=== PATIENT | male | born 1940 | race Caucasian/White ===

== ENCOUNTER 2019-11-05 20:37 | Emergency (ER) | payer SELFPAY ==
[2019-11-05] MEDS ORDERED: ACETAMINOPHEN 500 MG TAB ONE (21:15)
[2019-11-05] MEDS ORDERED: NA CHLORIDE 0.9% 0 ML ONE (21:16)
[2019-11-05 21:26] LABS: Absolute Lymphocytes (CBC) 7.3 K/uL (0.7-4.9); Basophils % 0.1 % (0-1.3); Hematocrit 13.2 % (39.6-49.0); Lymphocytes % 3.6 % (15.3-44.8); MPV 7.5 fL (7.6-11.3); RBC Red Blood Cell Count 1.18 M/uL (4.33-5.43)
[2019-11-05 21:37] LABS: ALT/SGPT 17 U/L (12-78); AST/SGOT 23 U/L (15-37); Albumin 2.6 g/dL (3.4-5.0); Alkaline Phosphatase 88 U/L (45-117); Amylase 24 U/L (25-115); BUN Blood Urea Nitrogen 18 mg/dL (7-18); Bicarbonate 24 mmol/L (21-32); Bilirubin Direct 0.3 mg/dL (0-0.2); Bilirubin Total 0.6 mg/dL (0.2-1.0); CKMB Creatine Kinase MB < 1.0 ng/mL (0.3-3.6); Creatine Phosphokinase 118 U/L (39-308); Glucose Level 144 mg/dL (74-106); Lipase 29 U/L (73-393); Protein, Total 6.8 g/dL (6.4-8.2); Sodium Level 136 mmol/L (136-145); Troponin (Emerg Dept Use Only) 0.08 ng/mL (0.0-0.045)
[2019-11-05 21:38] LABS: Protime INR 1.76
[2019-11-05] MEDS ORDERED: CEFTRIAXONE/SWI 1gm 1 GM/10 ML SYR ONE ×2 (21:50→21:54)
[2019-11-05 23:26] LABS: Anisocytosis 1+; Blood Morphology Comment NOTED (NOT SEEN); Macrocytosis 2+; Platelet Estimate DECR
--- NOTE | 2019-11-05 23:26 | EDPHYS ---
Physician Documentation [facility] Name: Cody Womack Age: 79 yrs Sex: Male : 1940 Arrival Date: 11/05/2019 Time: 20:[address] Private MD: ED Physician Wali Gordon HPI: 11/04 21:06 This 79 yrs old Male presents to ER via EMS with complaints of Chest Pain. [facility] 21:06 The patient or guardian reports cough, difficulty breathing. Onset: The [facility] symptoms/episode began/occurred gradually, 3 week(s) ago. Modifying factors: The symptoms are alleviated by nothing. the symptoms are aggravated by nothing. Associated signs and symptoms: Pertinent positives: fever. This is a 79 year old male with no known chronic medical conditions that presents to the ED with complaints of cough, congestion which has progressively worsened over the past 3 weeks. Patient states now having chest pain as well. . Historical: - Allergies: 21:07 No Known Allergies; - Home Meds: 21:07 Unable to obtain [Active]; - PMHx: 21:07 None; - PSHx: 21:07 None; - Immunization history:: Adult Immunizations not up to date. - Social history:: Smoking status: Patient/guardian denies using. ROS: 21:06 Abdomen/GI: Negative for abdominal pain, nausea, vomiting, diarrhea, and constipation, jmm Back: Negative for injury and pain, Neuro: Negative for headache, weakness, numbness, tingling, and seizure. 21:06 Constitutional: Positive for body aches, chills. 21:06 Cardiovascular: Positive for chest pain. 21:06 Respiratory: Positive for cough, shortness of breath. 21:06 All other systems are negative. Exam: 21:06 Head/Face: atraumatic. Eyes: EOMI, no conjunctival erythema appreciated ENT: Moist [facility] Mucus Membranes Neck: Trachea midline, Supple 21:06 Chest/axilla: Normal chest wall appearance and motion. Cardiovascular: Regular rate and rhythm. No edema appreciated 21:06 Abdomen/GI: Non distended, soft Back: Normal ROM Skin: General appearance color normal MS/ Extremity: Moves all extremities, no obvious deformities appreciated, no edema noted to the lower extremities Neuro: Awake and alert, normal gait Psych: Behavior is normal, Mood is normal, Patient is cooperative and pleasant 21:06 Constitutional: The patient appears alert, awake, uncomfortable. 21:06 Respiratory: mild respiratory distress is noted, Respirations: normal, Breath sounds: wheezing: that is mild, is scattered. Vital Signs: 20:53 BP 134 / 71; Pulse 112; Resp 24; Temp 101.7; Pulse Ox 98% 3 lpm ; Weight 103.42 kg; Height 5 ft. 4 in. (162.56 cm); 20:53 BP 134 / 71; Pulse 111; Resp 24; Pulse Ox 98% on 3 lpm NC; wh 22:00 BP 135 / 65; Pulse 101; Resp 24; Pulse Ox 98% on 3 lpm NC; 23:00 BP 127 / 59; Pulse 103; Resp 22; Temp 98.4; Pulse Ox 97% on 3 lpm NC; 11/05 00:30 BP 121 / 55; Pulse 102; Resp 22; Pulse Ox 97% on 3 lpm NC; 01:30 BP 127 / 54; Pulse 101; Resp 22; Pulse Ox 98% on 3 lpm NC; 02:45 BP 138 / 66; Pulse 107; Resp 24; Pulse Ox 99% on 15% Non-rebreather mask; 03:14 BP 145 / 60; Pulse 107; Resp 26; Pulse Ox 96% on 5 lpm NC; 04:00 BP 106 / 42; Pulse 104; Resp 22; Pulse Ox 99% on 20 lpm NC; 11/04 20:53 Body Mass Index 39.14 (103.42 kg, 162.56 cm) wh MDM: 11/04 21:22 Patient medically screened. [facility] 23:22 Data reviewed: vital signs, nurses notes. Counseling: I had a detailed discussion with anushka the patient and/or guardian regarding: the historical points, exam findings, and any diagnostic results supporting the discharge/admit diagnosis, lab results, radiology results, the need to transfer to another facility. ED course: I discussed the patient with Dr. Aragon whom recommended transfer due to acute leukemia. I discussed the patient with Dr. Myles whom accepted will consult on transfer and I discussed the patient with Dr. Garcia whom accepted transfer. . 11/05 02:55 ED course: Dr. Garcia requested to keep the patient here until he received blood. I anushka then discussed the patient with Dr. Whiting at [facility] that accepted transfer. . 11/04 20:53 Order name: Amylase, Serum; Complete Time: 21:38 11/04 20:53 Order name: Basic Metabolic Panel; Complete Time: 21:38 11/04 20:53 Order name: Blood Culture Adult (2) 11/04 20:53 Order name: CBC with Diff; Complete Time: 23:34 11/04 21:50 Interpretation: Abnormal. [facility] 11/04 20:53 Order name: Ckmb; Complete Time: 21:38 11/04 20:53 Order name: CPK; Complete Time: :38 11/04 20:53 Order name: Lactate; Complete Time: : 11/04 20:53 Order name: LFT's; Complete Time: : 11/04 20:53 Order name: Lipase; Complete Time: 21:38 11/04 20:53 Order name: Procalcitonin; Complete Time: 22:01 11/04 20:53 Order name: Protime (+inr); Complete Time: 21:48 11/04 20:53 Order name: Ptt, Activated; Complete Time: 21:48 11/04 20:53 Order name: Troponin (emerg Dept Use Only); Complete Time: 21:38 11/04 20:53 Order name: Urine Microscopic Only; Complete Time: 02:51 11/04 20:53 Order name: Chest Single View XRAY 11/04 20:53 Order name: Flu; Complete Time: 22:45 11/04 22:00 Order name: Glucose, Ancillary Testing; Complete Time: 22:06 [facility] 11/04 22:05 Order name: Manual Differential; Complete Time: 23:34 [facility] 11/04 22:17 Order name: SARS-COV-2 RT PCR; Complete Time: 23:18 [facility] 11/04 22:46 Order name: Type And Screen [facility] 11/05 00:27 Order name: Antibody Identification [facility] 11/05 02:26 Order name: Urine Dipstick--Ancillary (enter results); Complete Time: 02:40 ds4 11/05 02:45 Order name: Urine Culture [facility] 11/05 04:04 Order name: ABG Arterial Blood Gas [facility] 11/04 20:53 Order name: Accucheck; Complete Time: 21:51 11/04 20:53 Order name: Cardiac monitoring; Complete Time: : 11/04 20:53 Order name: EKG - Nurse/Tech; Complete Time: : 11/04 20:53 Order name: IV Saline Lock - Large Bore; Complete Time: 21:51 11/04 20:53 Order name: Labs collected and sent; Complete Time: 21: 11/04 20:53 Order name: O2 Per Protocol; Complete Time: : 11/04 20:53 Order name: O2 Sat Monitoring; Complete Time: : 11/04 20:53 Order name: Urine Dipstick-Ancillary (obtain specimen); Complete Time: : 11/04 21:41 Order name: Chest Wo Con CT jm Administered Medications: 11/04 21:51 Drug: Tylenol 1000 mg Route: PO; 23:42 Follow up: Response: No adverse reaction; Temperature is decreased :51 Drug: Rocephin 2 grams Route: IV; Rate: calculated rate; Site: right forearm; 23:42 Follow up: Response: No adverse reaction; IV Status: Completed infusion 23:42 Drug: vancoMYCIN 1 grams Route: IVPB; Infused Over: 2 hrs; Site: right forearm; 11/05 01:08 Follow up: Response: No adverse reaction; IV Status: Completed infusion 01:08 Not Given (Physician Discretion): NS 0.9% (30 ml/kg) 30 ml/kg IV at bolus once; Sepsis Protocol 02:30 Drug: Xopenex (3) 1.25 mg Route: Inhalation; 03:01 Drug: Herreid 5 mg-325 mg 1 tabs Route: PO; 04:07 Follow up: Response: No adverse reaction; Pain is decreased; RASS: Alert and Calm (0) Disposition: 06:51 Co-signature as Attending Physician, Wali Gordon MD. [email or web address] Disposition: 11/05/19 23:25 Transfer ordered to [facility]. Diagnosis are Acute monoblastic/monocytic leukemia, Multifocal Pneumonia. - Reason for transfer: Higher level of care. - Accepting physician is Dr. Whiting. - Condition is Stable. - Problem is new. - Symptoms are unchanged. Signatures: Dispatcher [employer] EDMS Mickail, Chauncey, PA PA [facility] Hoa, Mamadou Wali Gordon MD MD [email or web address] Corrections: (The following items were deleted from the chart) 11/04 21:33 20:53 D-DIMER+COAG.LAB.BRZ ordered. EDMS EDMS 22:17 20:54 CORONAVIRUS+MR.LAB.BRZ ordered. EDMS EDMS 23:36 23:17 PACKED RBC LEUKORED -1+BB.LAB.BRZ ordered. EDMS EDMS 23:36 23:17 ABO/RH typing ordered. EDMS EDMS 23:36 23:17 Antibody Screen ordered. EDWV EDMS 11/05 02:55 11/04 23:25 11/05/2019 23:25 Transfer ordered to [facility]. [facility] Diagnosis is Acute monoblastic/monocytic leukemia; Multifocal Pneumonia. Reason for transfer: Higher level of care. Accepting physician is Dr. Garcia. Condition is Stable. Problem is new. Symptoms are unchanged. [facility] 11/05 04:18 02:55 11/05/2019 23:25 Transfer ordered to [facility]. Diagnosis is Acute wh monoblastic/monocytic leukemia; Multifocal Pneumonia. Reason for transfer: Higher level of care. Accepting physician is Dr. Whiting. Condition is Stable. Problem is new. Symptoms are unchanged. [facility]
--- NOTE | 2019-11-05 23:26 | ER ---
Nurse's Notes [facility] Name: Cody Womack Age: 79 yrs Sex: Male : 1940 Arrival Date: 11/05/2019 Time: 20:[address] Private MD: Diagnosis: Acute monoblastic/monocytic leukemia;Multifocal Pneumonia Presentation: 11/04 20:50 Chief complaint: Patient states: chest pain that started for a week. Pt states Hx of on wh and off colds for months now. Pt thinks that's what causing the chest pain. Pt C/O chest pin radiating to both arms. Coronavirus screen: Client denies travel out of the [place] in the last 14 days. cough unrelated to allergies, fever, Client presents with at least one sign or symptom that may indicate coronavirus-19. Standard/surgical mask placed on the client. Ebola Screen: Patient negative for fever greater than or equal to 101.5 degrees Fahrenheit, and additional compatible Ebola Virus Disease symptoms Patient denies exposure to infectious person. Initial Sepsis Screen: Does the patient meet any 2 criteria? RR > 20 per min. Temp <36.0*C (96.8*F)) or > 38.3*C (100.9*F). HR > 90 bpm. Yes Does the patient have a suspected source of infection? Yes: Productive cough/pneumonia. Risk Assessment: Do you want to hurt yourself or someone else? Patient reports no desire to harm self or others. Onset of symptoms was November 05, 2019. 20:50 Method Of Arrival: EMS: [facility] 20:50 Acuity: BAO 3 Historical: - Allergies: 21:07 No Known Allergies; - Home Meds: 21:07 Unable to obtain [Active]; - PMHx: 21:07 None; - PSHx: 21:07 None; - Immunization history:: Adult Immunizations not up to date. - Social history:: Smoking status: Patient/guardian denies using. Screenin:00 Abuse screen: Denies threats or abuse. Denies injuries from another. Nutritional screening: No deficits noted. Tuberculosis screening: No symptoms or risk factors identified. Fall Risk None identified. Assessment: 21:00 General: Appears distressed, uncomfortable, Behavior is cooperative, appropriate for age. Pain: Complains of pain in chest Pain does not radiate. Pain currently is 5 out of 10 on a pain scale. Quality of pain is described as dull, Pain began 1 day ago. Is episodic. Neuro: Level of Consciousness is awake, alert, obeys commands, Oriented to person, place, time, situation, Appropriate for age. Cardiovascular: Heart tones S1 S2 Rhythm is sinus tachycardia. Respiratory: Reports shortness of breath cough that is Airway is patent Respiratory effort is labored, Respiratory pattern is tachypnea Breath sounds with wheezes bilaterally. GI: Abdomen is flat, non-distended. : No signs and/or symptoms were reported regarding the genitourinary system. EENT: No signs and/or symptoms were reported regarding the EENT system. Derm: Skin is intact, Skin is pink, warm \T\ dry. 22:00 Reassessment: Patient appears in no apparent distress at this time. No changes from previously documented assessment. Patient and/or family updated on plan of care and expected duration. Pain level reassessed. Patient is alert, oriented x 3, equal unlabored respirations, skin warm/dry/pink. Musculoskeletal: Circulation, motion, and sensation intact. 23:15 Reassessment: Patient appears in no apparent distress at this time. Patient and/or family updated on plan of care and expected duration. Pain level reassessed. Patient is alert, oriented x 3, equal unlabored respirations, skin warm/dry/pink. Explained POC need for transfer. 11/05 00:29 Reassessment: PT positive for Blood Antibodies, notified by Blood Bank it will take about 12 hours as blood is being sent to [facility]. Notified Provider. 01:00 Reassessment: Patient appears in no apparent distress at this time. Patient and/or family updated on plan of care and expected duration. Pain level reassessed. Patient is alert, oriented x 3, equal unlabored respirations, skin warm/dry/pink. Pt transferred to hospital bed, explained POC need to stay for the before being transferred to [facility]. 02:20 Reassessment: PT C/O of shortness of breath, sats went down to 85% RR 26, Pt placed on wh 15l NRB sats went up to 99%, notified Provider, order for breathing treatment, will cont to monitor. 03:11 Reassessment: Pt was placed back on 5LNC sats at 95%. Pt still C/O feeling of SOB, notified provider with order for ABD, RT paged. 03:24 Reassessment: Report given to Elis Bond RN. 03:30 Reassessment: PT was placed on High Flow Nasal Cannula per RT. Vital Signs: 11/04 20:53 BP 134 / 71; Pulse 112; Resp 24; Temp 101.7; Pulse Ox 98% 3 lpm ; Weight 103.42 kg; Height 5 ft. 4 in. (162.56 cm); 20:53 BP 134 / 71; Pulse 111; Resp 24; Pulse Ox 98% on 3 lpm NC; 22:00 BP 135 / 65; Pulse 101; Resp 24; Pulse Ox 98% on 3 lpm NC; 23:00 BP 127 / 59; Pulse 103; Resp 22; Temp 98.4; Pulse Ox 97% on 3 lpm NC; 11/05 00:30 BP 121 / 55; Pulse 102; Resp 22; Pulse Ox 97% on 3 lpm NC; 01:30 BP 127 / 54; Pulse 101; Resp 22; Pulse Ox 98% on 3 lpm NC; 02:45 BP 138 / 66; Pulse 107; Resp 24; Pulse Ox 99% on 15% Non-rebreather mask; 03:14 BP 145 / 60; Pulse 107; Resp 26; Pulse Ox 96% on 5 lpm NC; 04:00 BP 106 / 42; Pulse 104; Resp 22; Pulse Ox 99% on 20 lpm NC; 11/04 20:53 Body Mass Index 39.14 (103.42 kg, 162.56 cm) ED Course: 11/04 20:49 Patient arrived in ED. cl3 20:51 Mamadou Camara is Primary Nurse. 21:00 Arm band placed on right wrist. 21:00 Patient has correct armband on for positive identification. Bed in low position. Call light in reach. Side rails up X 1. quality assurance monitor final on. Pulse ox on. NIBP on. 21:00 Oxygen administration via nasal cannula \T\ 3L/min. 21:06 Triage completed. 21:15 Inserted saline lock: 18 gauge in right forearm, using aseptic technique. Blood wh collected. by [facility]. 21:19 Chest Single View XRAY In Process Unspecified. EDMS 21:19 Chauncey Pelaez PA is PHCP. [facility] 21:19 Wali Gordon MD is Attending Physician. [facility] 22:[address] [facility]. spoke with Kari Silva. Diagnosis is acute ar5 leukemia and multifocal pneumonia, pt. needs oncology. 22:46 Chauncey JEAN BAPTISTE talking to Oncologist Dr. Myles. ar5 23:04 Chauncey JEAN BAPTISTE talking to hardness tester Dr. Ira Garcia. ar5 23:29 Acceptance given by Kari Silva, pt. going to [facility] [address] 3 bed 8. ar[address] Ira Garcia. Call report to [phone]. 23:[address] In Process Unspecified. EDMS 11/05 00:45 per Chauncey JEAN BAPTISTE, I need to call [facility] to speak with Dr. Ira Garcia. ar5 02:15 Per Chauncey JEAN BAPTISTE, initiated transfer to [facility]. Due to pt. not wanting to ar5 wait \T\ [facility] to wait for blood to arrive. 02:27 Urine Microscopic Only Sent. ds4 02:30 Initiated transfer to [facility], spoke with Joan Juan. ar5 02:45 Chauncey JEAN BAPTISTE spoke with hardness tester Dr. Elliott. ar5 02:51 Acceptance given by Joan Juan. Pt. going to [facility] 8 B 835. Accepting ar5 physician Anastasiya Elliott. Call report [phone]. 03:16 Called [facility] to transfer pt. to [facility]. EMS will be here in 25-30 ar5 Minutes. 03:[address] [facility] due to pt. not wanting to wait \T\ at [facility] ar5 spoke with aKri Silva. 04:05 No provider procedures requiring assistance completed. Patient transferred, IV remains in place. Administered Medications: 11/04 21:51 Drug: Tylenol 1000 mg Route: PO; 23:42 Follow up: Response: No adverse reaction; Temperature is decreased 21:51 Drug: Rocephin 2 grams Route: IV; Rate: calculated rate; Site: right forearm; 23:42 Follow up: Response: No adverse reaction; IV Status: Completed infusion 23:42 Drug: vancoMYCIN 1 grams Route: IVPB; Infused Over: 2 hrs; Site: right forearm; 11/05 01:08 Follow up: Response: No adverse reaction; IV Status: Completed infusion 01:08 Not Given (Physician Discretion): NS 0.9% (30 ml/kg) 30 ml/kg IV at bolus once; Sepsis Protocol 02:30 Drug: Xopenex (3) 1.25 mg Route: Inhalation; 03:01 Drug: [place] 5 mg-325 mg 1 tabs Route: PO; 04:07 Follow up: Response: No adverse reaction; Pain is decreased; RASS: Alert and Calm (0) Outcome: 11/04 23:25 ER care complete, transfer ordered by . anushka 11/05 04:05 Transferred by ground EMS to [facility], Transfer form completed. X-rays sent w/ patient. Note: REport given to [facility] Condition: stable Discharge instructions given to patient, Instructed on the need for transfer, Demonstrated understanding of 04:18 Patient left the ED. Signatures: Dispatcher [employer] EDMS Chauncey Pelaez PA PA jmm Swanson, Donovan ds4 Mamadou Camara Antonette Slade ar5 Richie Loco cl3 Corrections: (The following items were deleted from the chart) 00:58 11/04 20:30 BP 135 / 65; Pulse 101bpm; Resp 24bpm; Pulse Ox 98% 3 lpm Nasal Cannula; Temp 98.4F; 11/05 00:59 11/04 20:53 BP 134 / 71; Pulse 112bpm; Resp 20bpm; Pulse Ox 98% 3 lpm; Temp 101.7F; 103.42 kg; Height 5 ft. 4 in.; BMI: 39.1; 11/05 00:59 11/04 20:50 Initial Sepsis Screen: Does the patient meet any 2 criteria? Temp <36.0*C (96.8*F)) or > 38.3*C (100.9*F). HR > 90 bpm. Yes Does the patient have a suspected source of infection? Yes: Productive cough/pneumonia 11/05 00:59 11/04 20:30 BP 134 / 71; Pulse 111bpm; Resp 24bpm; Pulse Ox 98% 3 lpm Nasal Cannula; [facility] 11/05 01:00 11/04 23:00 BP 127 / 59; Pulse 103bpm; Resp 22bpm; Pulse Ox 97% 3 lpm Nasal Cannula; [facility] 11/05 01:00 11/04 22:00 BP 135 / 65; Pulse 101bpm; Resp 24bpm; Pulse Ox 98% 3 lpm Nasal Cannula; Temp 98.4F; 11/05 03:21 03:14 BP 145 / 60; Pulse 107bpm; Resp 26bpm; Pulse Ox 96% 5 lpm; [facility] 04:21 11/04 23:04 Chauncey JEAN BAPTISTE talking to Oncologist Dr. Hawa eagle 11/05 04:21 11/04 22:46 Chauncey JEAN BAPTISTE talking to Oncologist Dr. Hawa eagle
[2019-11-05] MEDS ORDERED: NA CHLORIDE 0.9% 250 ML ONE (23:49)
[2019-11-05] MEDS ORDERED: VANCOMYCIN 1 GM/VIAL ONE (23:49)
[2019-11-06] MEDS ORDERED: LEVALBUTEROL 1.25 MG/3 ML NEB ONE (02:33)
[2019-11-06 02:36] LABS: Urine Blood 2+ (NEG); Urine Glucose NEGATIVE (NEG); Urine Protein 2+ (NEG); Urine pH 5.5 (5.0-7.0)
[2019-11-06 02:43] LABS: Calcium Oxalate Crystals- Ur MANY (NONE SEEN); Urine Amorphous Sediment 2+ /HPF (NONE SEEN); Urine Bacteria >50 /HPF (NONE SEEN); Urine Culture Reflex Order REFLEXED; Urine Mucus 2+ /HPF (NONE SEEN)
[2019-11-06 02:44] LABS: Urine Coarse Granular Casts FEW /LPF (NONE SEEN)
[2019-11-06] MEDS ORDERED: HYDROCODONE/APAP 5/325 MG TAB ONE (03:08)
[2019-11-06 04:04] LABS: Arterial Blood Carboxyhemoglob 1.7 % (0-1.5); Blood Gas Oxyhemoglobin 81.5 % (94-97); Blood O2 Saturation 83.7 % (92-98.5)
[2019-11-06 04:44] VITALS: TEMP 98.4
[2019-11-06 04:51] VITALS: BP 106/42; O2SAT 99
--- NOTE | 2019-11-06 13:50 | RAD REPORT ---
EXAM DESCRIPTION: Margarette Single View11/05/2019 9:19 pm CLINICAL HISTORY: Cough COMPARISON: none FINDINGS: Moderate bilateral patchy alveolar opacities within the lungs The heart is normal size IMPRESSION: Moderate bilateral patchy alveolar opacities consistent with pneumonia. This can be seen with Covid
--- NOTE | 2019-11-06 21:42 | RAD REPORT ---
EXAM DESCRIPTION: CT - Thorax Wo Con - 11/06/2019 6:48 am CLINICAL HISTORY: Shortness of breath TECHNIQUE: Contiguous axial images obtained through the chest without IV contrast. Coronal and sagit marisol reformatted images provided. This exam was performed according to our departmental dose-optimization program, which includes autom ated exposure control, adjustment of the mA and/or kV according to patient size and/or use of iterati ve reconstruction technique. COMPARISON: No prior exams provided for comparison. FINDINGS: Lungs: Minimal biapical paraseptal emphysema and pleural parenchymal scar. Multifocal patc hy consolidative changes, reticular nodular opacities and groundglass opacities throughout the lungs bilaterally. Airways are patent. Pleura: Calcified pleural plaques bilaterally. No effusion. No pneumothorax. Heart and pericardium: The heart is enlarged. Coronary artery calcification.. No pericardial effusion . Mediastinum and warren: Calcified mediastinal and bilateral hilar lymph nodes. No pathologically enlarg ed lymph nodes. Lower neck and chest wall: Unremarkable Vessels: Moderate atherosclerotic disease. No thoracic aortic aneurysm. Upper abdomen: The liver is enlarged. Bones: Multilevel spondylosis. No acute fracture. IMPRESSION: 1. Imaging features can be seen with viral pneumonia, though are nonspecific and can o ccur with a variety of infectious and noninfectious processes. PneInd Reference: https://pubs.rsna.or g/doi/full/10.1148/ryct.[email or web address] 2. Other findings as above. Electronically signed by: Chip Rowe MD 11/05/2019 11:53 PM CDT Due to temporary technical issues with the PACS/Fluency reporting system, reports are being signed by the in house radiologist without review as a courtesy to ensure prompt reporting. The interpreting r adiologist is fully responsible for the content of the report.
== END 2019-11-06 04:18 | disposition short-term general hospital (02) ==
LOC: ER 20:37
DX: C93.00 Acute monoblastic/monocytic leukemia, not having achieved remission (principal); J18.8 Other pneumonia, unspecified organism; Z20.828 Contact with and (suspected) exposure to other viral communicable diseases
CPT/HCPCS: 36415; 71045; 71250; 80048; 80076; 81003; 81015; 82150; 82550; 82553; 82805; 82947; 83605; 83690; 84145; 84484; 85025; 85610; 85730; 86850; 86870; 86900; 86901; 87040; 87086; 87088; 87804; 93005; 96365; 96366; 96367; 99285; J0696; J3370; J7030; J7050; U0003